=== PATIENT | female | born 1990 | race Caucasian/White ===

== ENCOUNTER → 2017-05-02 | Day surgery (SDC) | payer BC ==
[~2017-05-02] VITALS: Ht 162.6 cm; Wt 50.5 kg
[~2017-05-02] MED LIST: AMOX500T PO; AMPICILLIN/SULBAC 3 GM/NS 100 ML IV ONE; CHLORHEXIDINE GLUCONATE 2 % 1 PACK (2 CLOTHS) TOPICAL PRN; FAMOTIDINE 20 MG/2 ML VIAL ONE; HYDR1SOL3 PO; LACTATED RINGER'S 1000 ML IV PRN; METOPROLOL TARTRATE 25 MG TAB PO PRN; MICROFIBRILLAR COLLAGEN HEMOSTAT 1 GM PKT ONE; MIDAZOLAM HCL 2 MG/2 ML VIAL ONE; OXYMETAZOLINE HCL 0.05% 15 ML NASAL SPRAY ONE; POVIDONE IODINE 5% (ANTISEPSIS KIT) 4 APPLICATIONS EACH NARE PRN; PRED50TA PO; PROM25SU8 PO; SODIUM CHLORID 0.9% 500 ML IV PRN; ZOFR4TAB3 SL
[2017-05-02 09:25] VITALS: PULSE 70
[2017-05-02 10:00] VITALS: PULSE 71; TEMP 97.8
[2017-05-02 10:25] VITALS: BP 115/69; PULSE 57; RESP 14; O2SAT 100
--- NOTE | 2017-05-02 22:21 | MP ---
cc: LEANNE WAHL MD DATE OF SURGERY 05/02/[address] Delmis wahl PREOPERATIVE DIAGNOSIS 1. Adenotonsillar hypertrophy 2. Chronic tonsillitis. POSTOPERATIVE DIAGNOSIS 1. Adenotonsillar hypertrophy 2. Chronic tonsillitis. OPERATION PERFORMED Adenotonsillectomy INDICATIONS Documented in the history and physical. DESCRIPTION OF OPERATION The patient was taken to OR #2 and placed in the supine position. Following induction of general anesthesia and intubation, a shoulder roll, a Jeff head drape and a McIvor mouth gag were put in place. The tonsils were removed using the ArthroCare Coblator technique. A few sites of venous bleeding were cauterized using the bipolar cautery until hemostasis was complete. Following this, the adenoids were removed using the suction Bovie at 45 gonzales. The stomach was aspirated of several cc of cloudy gastric contents using a #18 [place] sump NG tube and, when this was completed, the mouth gag was removed and the procedure was terminated. The patient was reversed from anesthesia and taken to recovery in good condition. There were no complications. Blood loss was less than 10 mL. MD KAROL Gonzalez/ /10:31 AM /10:12 PM
== END | disposition home or self-care (01) ==
LOC: PHSDC 06:43
PROVIDERS: ATTEND Otolaryngology
DX: J35.01 Chronic tonsillitis (principal)
CPT/HCPCS: 00170; 42821; 88304; J0295; J2250; J3010; J7120

== ENCOUNTER 2017-05-27 13:48 | Inpatient (IN) | payer BC ==
[~2017-05-27] VITALS: Ht 160 cm; Wt 67.4 kg
[~2017-05-27 13:48] MED LIST changes: -AMOX500T PO; -AMPICILLIN/SULBAC 3 GM/NS 100 ML IV ONE; -CHLORHEXIDINE GLUCONATE 2 % 1 PACK (2 CLOTHS) TOPICAL PRN; -FAMOTIDINE 20 MG/2 ML VIAL ONE; -LACTATED RINGER'S 1000 ML IV PRN; -METOPROLOL TARTRATE 25 MG TAB PO PRN; -MICROFIBRILLAR COLLAGEN HEMOSTAT 1 GM PKT ONE; -MIDAZOLAM HCL 2 MG/2 ML VIAL ONE; -OXYMETAZOLINE HCL 0.05% 15 ML NASAL SPRAY ONE; -POVIDONE IODINE 5% (ANTISEPSIS KIT) 4 APPLICATIONS EACH NARE PRN; -PRED50TA PO; -PROM25SU8 PO; -SODIUM CHLORID 0.9% 500 ML IV PRN
[2017-05-27 13:49] VITALS: BP 112/84; PULSE 73; RESP 18; TEMP 98.8; O2SAT 100
--- NOTE | 2017-05-27 15:06 | PD ---
HPI Chief Complaint: Injury Time Seen by Provider: 15:01 Travel History International Travel<30 days: No Contact w/Intl Traveler<30days: No Traveled to known affect area: No History of Present Illness HPI 26-year-old female presents the emergency department after falling off her skateboard injuring her right ankle. Patient is unable to bear weight. She is brought in by her friends via POV. She denies hitting her head or loss of consciousness. She denies any other injury. Her pain is currently 10 out of 10. She denies numbness or tingling distal to the right ankle. Patient states when she has morphine gives her rash and causes itchiness. She has allergies to codeine and promethazine as well. Patient did take 2 Aleve before arriving here. PFSH Past Medical History Diminished Hearing: No Immunizations Current: Yes ?: Not LMP: 05/17/17 Past Surgical History AICD: No Joint Replacement: No Oral Surgery: Yes (WISDOM TEETH REMOVAL) Pacemaker: No Social History Alcohol Use: Yes Tobacco Use: No Substance Use: No Allergies-Medications (Allergen,Severity, Reaction): Coded Allergies: morphine (Verified Allergy, Severe, Hives, 05/27/17) promethazine (Verified Adverse Reaction, Severe, NECK SPASMS, 05/27/17) codeine (Unverified Adverse Reaction, Mild, VOMITING, 05/27/17) Reported Meds & Prescriptions Reported Meds & Active Scripts Active No Active Prescriptions or Reported Medications Review of Systems Except as stated in HPI: all other systems reviewed are Neg General / Constitutional: No: Fever Eyes: No: Visual changes HENT: No: Headaches Cardiovascular: No: Chest Pain or Discomfort Respiratory: No: Shortness of Breath Gastrointestinal: No: Abdominal Pain Genitourinary: No: Dysuria Musculoskeletal: No: Pain Skin: No Rash Neurologic: No: Weakness Psychiatric: No: Depression Endocrine: No: Polydipsia Hematologic/Lymphatic: No: Easy Bruising Physical Exam Narrative GENERAL: Patient appears in mild to moderate distress SKIN: Warm and dry. Normal color. Normal turgor. Patient is a small abrasion to the right medial anterior ankle. HEAD: Atraumatic. Normocephalic. EYES: Pupils equal and round. No scleral icterus. No injection or drainage. ENT: No nasal bleeding or discharge. Mucous membranes pink and moist. Pharynx is clear. Airway is patent NECK: Trachea midline. Supple nontender CARDIOVASCULAR: Regular rate and rhythm. RESPIRATORY: No accessory muscle use. Clear to auscultation. Breath sounds equal bilaterally. GASTROINTESTINAL: Abdomen soft, non-tender, nondistended. Hepatic and splenic margins not palpable. MUSCULOSKELETAL: Extremities without clubbing, cyanosis, or edema. Patient is obvious swelling to the right ankle, and significant decreased range of motion secondary to pain. Neurovascular exam of the toes and foot are normal. Exam is limited secondary to patient's comfort NEUROLOGICAL: Awake and alert. No obvious cranial nerve deficits. Motor grossly within normal limits. Five out of 5 muscle strength in the arms and legs. Normal speech. PSYCHIATRIC: Appropriate mood and affect; insight and judgment normal. Data Data Last Documented VS Vital Signs Date Time Temp Pulse Resp B/P (MAP) Pulse Ox O2 Delivery O2 Flow Rate FiO2 05/27/17 13:49 98.8 73 18 112/84 (93) 100 Orders Orders Ankle, Complete ([id number]) (05/27/17 ) Splinting (05/27/17 ) Admit Order (Ed Use Only) (05/27/17 15:44) Complete Blood Count With Diff (05/27/17 15:44) Comprehensive Metabolic Panel (05/27/17 15:44) Prothrombin Time / Inr (Pt) (05/27/17 15:44) Act Partial Throm Time (Ptt) (05/27/17 15:44) Urinalysis - C+S If Indicated (05/27/17 15:44) Iv Access Insert/Monitor (05/27/17 15:44) Ecg Monitoring (05/27/17 15:44) Oximetry (05/27/17 15:44) Ondansetron Inj (Zofran Inj) (05/27/17 15:45) Sodium Chlor 0.9% 1000 Ml Inj (Ns 1000 M (05/27/17 15:44) Sodium Chloride 0.9% Flush (Ns Flush) (05/27/17 15:45) Hydromorphone Pf Inj (Dilaudid Pf Inj) (05/27/17 15:45) Ed Urine Pregnancytest Poc (05/27/17 15:44) Consult Orthopedic (05/27/17 ) [facility] Medical Decision Making Medical Screen Exam Complete: Yes Emergency Medical Condition: Yes Medical Record Reviewed: Yes Differential Diagnosis Fall and sports. Right ankle sprain. Right ankle fracture. Narrative Course Patient is medically stable at time of exam X-ray of the right ankle is ordered in triage X-ray shows trimalleolar fracture of the right ankle. Patient is discussed with Dr. Purdy, orthopedic on-call and he recommends admitting the patient for surgery tomorrow as it looks like an unstable fracture. Labs ordered including CBC, CMP, urinalysis, and urine test. IV access is obtained and patient is given 4 mg Zofran as well as 1 mg Dilaudid IV. Call was placed to the hospitalist, and the patient was discussed with Dr. Chapman , who agrees to admit the patient. Diagnosis Primary Impression: Closed right ankle fracture Qualified Codes: S82.891A - Other fracture of right lower leg, initial encounter for closed fracture Admitting Information Admitting Physician Requests: Observation Additional Instructions: X-ray shows trimalleolar fracture of the right ankle. Patient is discussed with Dr. Purdy, orthopedic on-call and he recommends admitting the patient for surgery tomorrow as it looks like an unstable fracture. Labs ordered including CBC, CMP, urinalysis, and urine test. IV access is obtained and patient is given 4 mg Zofran as well as 1 mg Dilaudid IV. Call was placed to the hospitalist, and the patient was discussed with Dr. Chapman , who agrees to admit the patient. Scripts No Active Prescriptions or Reported Meds Condition: Stable Liam Cheng May 27, 2017 15:06
--- NOTE | 2017-05-27 15:09 | RADRPT ---
EXAM DATE/TIME: 05/27/2017 14:26 [facility] COMPARISON: No previous studies available for comparison. INDICATIONS : Ankle injury. MEDICAL HISTORY : None. SURGICAL HISTORY : None. ENCOUNTER: Initial ACUITY: 1 day PAIN SCORE: 7/10 LOCATION: Right Ankle. FINDINGS: There are nondisplaced fractures of the lateral and medial malleoli as well as the posterior malleolu s. Soft tissue prominence overlying the ankle. Talar dome is intact. Joint spaces are relatively main tained. CONCLUSION: 1. Nondisplaced trimalleolar fracture. Tom Rivas MD on May 27, 2017 at 15:06 Board Certified Radiologist. This report was verified electronically.
[2017-05-27] MEDS ORDERED: SODIUM CHLOR 0.9% 1000 ML INJ 1,000 ML IV SCH (15:44)
[2017-05-27] MEDS ORDERED: SODIUM CHLORIDE 0.9% FLUSH 10 ML FLUSH IV FLUSH PRN ×2 (15:45→16:30)
[2017-05-27] MEDS: HYDROmorphone HCL PF 1 MG/ML VIAL IVS ONE ×2 (15:45→16:17)
[2017-05-27] MEDS ORDERED: ONDANSETRON HCL 4 MG/2 ML VIAL IVP ONE (15:45)
[2017-05-27] MEDS ORDERED: HYDROmorphone HCL PF 2 MG/ML VIAL IV ONE (16:15)
[2017-05-27 16:18] LABS: AUTOMATED NEUTROPHIL # 10.5 TH/MM3 (1.8-7.7); BASOPHIL % 0.2 % (0.0-2.0); EOSINOPHIL % 0.2 % (0.0-4.0); HEMATOCRIT 38.4 % (35.0-46.0); HEMOGLOBIN 12.2 GM/DL (11.6-15.3); LYMPH % 9.3 % (9.0-44.0); LYMPHOCYTE # 1.1 TH/MM3 (1.0-4.8); MEAN CORPUSCULAR HGB CONC 31.7 % (32.0-36.0); MEAN PLATELET VOLUME 9.6 FL (7.0-11.0); MONO % 5.7 % (0.0-8.0); MONOCYTE # 0.7 TH/MM3 (0-0.9); NEUT % 84.6 % (16.0-70.0); PLATELET COUNT 205 TH/MM3 (150-450); WHITE BLOOD COUNT 12.4 TH/MM3 (4.0-11.0)
[2017-05-27 16:25] VITALS: BP 106/70; PULSE 70; RESP 16; O2SAT 100
[2017-05-27] MEDS ORDERED: NALOXONE HCL 0.4 MG/ML AMP IV PUSH PRN (16:30)
[2017-05-27] MEDS ORDERED: ACETAMINOPHEN/HYDROcodone 325 MG/10 MG TAB PO PRN (16:30)
[2017-05-27] MEDS ORDERED: ACETAMINOPHEN/HYDROcodone 325 MG/5 MG TAB PO PRN (16:30)
[2017-05-27] MEDS ORDERED: ONDANSETRON HCL 4 MG/2 ML VIAL IVP PRN (16:30)
[2017-05-27] MEDS ORDERED: HYDROmorphone HCL PF 2 MG/ML VIAL IV PUSH PRN (16:30)
[2017-05-27] MEDS ORDERED: ACETAMINOPHEN 325 MG TAB PO PRN ×2 (16:30)
[2017-05-27 16:34] LABS: ALBUMIN 4.7 GM/DL (3.4-5.0); AST (GOT) 12 U/L (15-37); BICARBONATE 26.4 MEQ/L (21.0-32.0); BLOOD UREA NITROGEN 9 MG/DL (7-18); CALCIUM 9.5 MG/DL (8.5-10.1); CHLORIDE 106 MEQ/L (98-107); CREATININE 0.77 MG/DL (0.50-1.00); GLOMERULAR FILTRATION RATE 92 ML/MIN (>89); GLUCOSE,RANDOM 89 MG/DL (74-106); SODIUM (NA) 139 MEQ/L (136-145)
[2017-05-27 16:35] LABS: INTERNATIONAL NORMALIZED RATIO 1.1 RATIO; PROTHROMBIN TIME - PATIENT 11.4 SEC (9.8-11.6)
[2017-05-27 16:36] LABS: ALT (GPT) 13 U/L (10-53)
[2017-05-27 16:37] LABS: ALKALINE PHOSPHATASE 59 U/L (45-117); TOTAL BILIRUBIN ADULT 0.5 MG/DL (0.2-1.0); TOTAL PROTEIN 7.6 GM/DL (6.4-8.2)
--- NOTE | 2017-05-27 16:55 | HHI.HP ---
HPI Service [facility] Primary Care Physician No Primary Care Physician Admission Diagnosis Right ankle fracture Diagnoses: Chief Complaint: Ankle pain Travel History International Travel<30 Days: No Contact w/Intl Traveler <30 Da: No Traveled to Known Affected Are: No History of Present Illness The patient is a 26-year-old female with no significant past medical history who is presenting to the hospital following a skateboarding accident. [place] and when she was going down a ramp she fell off her skateboard and rolled her ankle multiple times. She went to the ground and try to wiggle her toes and had a lot of difficulty moving her foot. She thought she fractured her ankle. She called for help and waited an hour before her friend was able to pick her up. Her friend gave her two Aleve's. The patient says that the Dilaudid she received is making her a little woozy. She wanted to know when she would be going for surgery tomorrow. She said she got her tonsils out last month. She had no other acute concerns. Review of Systems Except as stated in HPI: all other systems reviewed are Neg Past Family Social History Past Medical History The patient denies significant medical history Past Surgical History Tonsillectomy Allergies: Coded Allergies: morphine (Verified Allergy, Severe, Hives, 05/27/17) promethazine (Verified Adverse Reaction, Severe, NECK SPASMS, 05/27/17) codeine (Unverified Adverse Reaction, Mild, VOMITING, 05/27/17) Active Ordered Medications Current Medications Medications (Trade) Dose Ordered Sig/Catherine Route Start Time Stop Time Status Last Admin (NS Flush) 2 ml UNSCH PRN IV FLUSH 05/27/17 15:45 Sodium Chloride 1,000 ml @ 75 mls/hr [id number] IV 05/27/17 16:20 05/28/17 18:59 (NS Flush) 2 ml UNSCH PRN IV FLUSH 05/27/17 16:30 (NS Flush) 2 ml BID IV FLUSH 05/27/17 21:00 (Tylenol) 650 mg Q4H PRN PO 05/27/17 16:30 (Zofran Inj) 4 mg Q6H PRN IVP 05/27/17 16:30 (Tylenol) 650 mg Q6H PRN PO 05/27/17 16:30 (Saranac 5-325 Mg) 1 tab Q4H PRN PO 05/27/17 16:30 ([place] 10-325 Mg) 1 tab Q4H PRN PO 05/27/17 16:30 (Dilaudid Pf Inj) 1 mg Q3H PRN IV PUSH 05/27/17 16:30 (Narcan Inj) 0.4 mg UNSCH PRN IV PUSH 05/27/17 16:30 (Angelica-Colace) 1 tab BID PO 05/27/17 21:00 Family History Ovarian and breast cancer Social History The patient does not smoke, drink or use illicit substances. Physical Exam Vital Signs Vital Signs Date Time Temp Pulse Resp B/P (MAP) Pulse Ox O2 Delivery O2 Flow Rate FiO2 05/27/17 16:40 05/27/17 16:25 70 16 106/70 (82) 100 05/27/17 16:25 100 Room Air 05/27/17 13:49 98.8 73 18 112/84 (93) 100 Physical Exam GENERAL: This is a well-nourished, well-developed patient, in no apparent distress. SKIN: No rashes, ecchymoses or lesions. Cool and dry. HEAD: Atraumatic. Normocephalic. No temporal or scalp tenderness. EYES: Pupils equal round and reactive. Extraocular motions intact. No scleral icterus. No injection or drainage. ENT: Nose without bleeding, purulent drainage or septal hematoma. Throat without erythema, tonsillar hypertrophy or exudate. Uvula midline. Airway patent. NECK: Trachea midline. No JVD or lymphadenopathy. Supple, nontender, no meningeal signs. CARDIOVASCULAR: Regular rate and rhythm without murmurs, gallops, or rubs. RESPIRATORY: Clear to auscultation. Breath sounds equal bilaterally. No wheezes , rales, or rhonchi. GASTROINTESTINAL: Abdomen soft, non-tender, nondistended. No hepato-splenomegaly , or palpable masses. No guarding. MUSCULOSKELETAL: Right lower extremity is wrapped up. She is able to wiggle her toes. Positive pedal pulses on the left. NEUROLOGICAL: Awake and alert. Cranial nerves II through XII intact. Motor and sensory grossly within normal limits. Five out of 5 muscle strength in all muscle groups. Normal speech. PSYCH: Mood and affect appropriate. Laboratory Laboratory Tests Test 05/27/17 15:40 White Blood Count 12.4 Red Blood Count 6.40 Hemoglobin 12.2 Hematocrit 38.4 Mean Corpuscular Volume 60.0 Mean Corpuscular Hemoglobin 19.0 Mean Corpuscular Hemoglobin Concent 31.7 Red Cell Distribution Width 15.0 Platelet Count 205 Mean Platelet Volume 9.6 Neutrophils (%) (Auto) 84.6 Lymphocytes (%) (Auto) 9.3 Monocytes (%) (Auto) 5.7 Eosinophils (%) (Auto) 0.2 Basophils (%) (Auto) 0.2 Neutrophils # (Auto) 10.5 Lymphocytes # (Auto) 1.1 Monocytes # (Auto) 0.7 Eosinophils # (Auto) 0.0 Basophils # (Auto) 0.0 CBC Comment AUTO DIFF Prothrombin Time 11.4 Prothromb Time International Ratio 1.1 Activated Partial Thromboplast Time 24.6 Blood Urea Nitrogen 9 Creatinine 0.77 Random Glucose 89 Total Protein 7.6 Albumin 4.7 Calcium Level 9.5 Alkaline Phosphatase 59 Aspartate Amino Transf (AST/SGOT) 12 Alanine Aminotransferase (ALT/SGPT) 13 Total Bilirubin 0.5 Sodium Level 139 Potassium Level 3.7 Chloride Level 106 Carbon Dioxide Level 26.4 Anion Gap 7 Estimat Glomerular Filtration Rate 92 Result Diagram: 05/27/17 1540 05/27/17 1540 Caprini VTE Risk Assessment Caprini VTE Risk Assessment: Mod/High Risk (score >= 2) Caprini Risk Assessment Model Point Value = 1 Point Value = 2 Point Value = 3 Point Value = 5 Age 41-60 Minor surgery BMI > 25 kg/m2 Swollen legs Varicose veins or History of unexplained or recurrent spontaneous Oral contraceptives or hormone replacement Sepsis (< 1 month) Serious lung disease, including pneumonia (< 1 month) Abnormal pulmonary function Acute myocardial infarction Congestive heart failure (< 1 month) History of inflammatory bowel disease Medical patient at bed rest Age 61-74 Arthroscopic surgery Major open surgery (> 45 min) Laparoscopic surgery (> 45 min) Malignancy Confined to bed (> 72 hours) Immobilizing plaster cast Central venous access Age >= 75 History of VTE Family history of VTE Factor V Leiden Prothrombin [id number] Lupus anticoagulant Anticardiolipin antibodies Elevated serum homocysteine Heparin-induced thrombocytopenia Other congenital or acquired thrombophilia Stroke (< 1 month) Elective arthroplasty Hip, pelvis, or leg fracture Acute spinal cord injury (< 1 month) Prophylaxis Regimen Total Risk Factor Score Risk Level Prophylaxis Regimen 0-1 Low Early ambulation 2 Moderate Order ONE of the following: *Sequential Compression Device (SCD) *Heparin 5000 units SQ BID 3-4 Higher Order ONE of the following medications: *Heparin 5000 units SQ TID *Enoxaparin/Lovenox 40 mg SQ daily (WT < 150 kg, CrCl > 30 mL/min) *Enoxaparin/Lovenox 30 mg SQ daily (WT < 150 kg, CrCl > 10-29 mL/min) *Enoxaparin/Lovenox 30 mg SQ BID (WT < 150 kg, CrCl > 30 mL/min) AND/OR *Sequential Compression Device (SCD) 5 or more Highest Order ONE of the following medications: *Heparin 5000 units SQ TID (Preferred with Epidurals) *Enoxaparin/Lovenox 40 mg SQ daily (WT < 150 kg, CrCl > 30 mL/min) *Enoxaparin/Lovenox 30 mg SQ daily (WT < 150 kg, CrCl > 10-29 mL/min) *Enoxaparin/Lovenox 30 mg SQ BID (WT < 150 kg, CrCl > 30 mL/min) AND *Sequential Compression Device (SCD) Assessment and Plan Assessment and Plan Right trimalleolar fracture Sustained following a skateboarding accident. Orthopedic surgery has been consulted. - Anticipate surgery in the morning. - Nothing by mouth at midnight with IV fluids. - Pain control with a bowel regimen. Leukocytosis Likely a stress reaction. - Monitor CBC. PPx: Per orthopedic surgery Code Status Full Discussed Condition With Patient, patient's family, Liam Cheng Physician Certification 2 Midnight Certification Type: Admission for Inpatient Services Order for Inpatient Services The services are ordered in accordance with Medicare regulations or non- Medicare payer requirements, as applicable. In the case of services not specified as inpatient-only, they are appropriately provided as inpatient services in accordance with the 2-midnight benchmark. Estimated LOS (days): 2 days is the estimated time the patient will need to remain in the hospital, assuming treatment plan goals are met and no additional complications. Post-Hospital Plan: Home Valentino Santos DO May 27, 2017 16:55
[2017-05-27 17:06] LABS: BACTERIA, URINE FEW /hpf; BILIRUBIN, URINE NEG (NEG); BLOOD, URINE NEG (NEG); GLUCOSE,URINE NEG (NEG); KETONE, URINE NEG (NEG); MUCUS URINE FEW /lpf (OCC); NITRITE,URINE NEG (NEG); PH, URINE 7.5 (5.0-8.5); SQUAMOUS EPITHELIAL CELL URINE <1 /hpf (0-5); URINE COLOR LIGHT-YELLOW (YELLW/STRAW); URINE LEUKOCYTE ESTERASE NEG (NEG)
[2017-05-27] MEDS: SODIUM CHLOR 0.9% 1000 ML INJ 1,000 ML IV SCH (18:13)
[2017-05-27] MEDS: SODIUM CHLORIDE 0.9% FLUSH 10 ML FLUSH IV FLUSH SCH (19:55)
[2017-05-27] MEDS: DOCUSATE SODIUM 50 MG/SENNA 8.6 MG TAB PO SCH (19:55)
[2017-05-27 20:00] VITALS: BP 99/67; PULSE 51; RESP 15; TEMP 96.6; O2SAT 97
[2017-05-27] MEDS ORDERED: METOCLOPRAMIDE HCL 10 MG/2 ML VIAL IV PUSH ONE (21:30)
[2017-05-27] MEDS ORDERED: KETOROLAC TROMETHAMINE 30 MG/ML (IVP) VIAL IV PUSH ONE (21:30)
[2017-05-28] VITALS: BP 95/66; PULSE 56; RESP 15; TEMP 96.9; O2SAT 98
[2017-05-28] MEDS ORDERED: METOPROLOL TARTRATE 25 MG TAB PO PRN (02:15)
[2017-05-28] MEDS ORDERED: POVIDONE IODINE 5% (ANTISEPSIS KIT) 4 APPLICATIONS EACH NARE PRN (02:15)
[2017-05-28] MEDS ORDERED: LACTATED RINGER'S 1000 ML IV PRN (02:15)
[2017-05-28] MEDS ORDERED: INSULIN HUMAN REGULAR 1,000 UNITS/10 ML VIAL SQ PRN (02:15)
[2017-05-28] MEDS ORDERED: CHLORHEXIDINE GLUCONATE 2 % 1 PACK (2 CLOTHS) TOPICAL PRN (02:15)
[2017-05-28] MEDS ORDERED: SODIUM CHLORID 0.9% 500 ML IV PRN (02:15)
[2017-05-28 04:00] VITALS: BP 91/67; PULSE 65; RESP 15; TEMP 97.6; O2SAT 100
[2017-05-28] MEDS: SODIUM CHLOR 0.9% 1000 ML INJ 1,000 ML IV SCH (05:40)
[2017-05-28 08:00] VITALS: BP 100/62; PULSE 71; RESP 18; TEMP 98.2; O2SAT 100
--- NOTE | 2017-05-28 08:40 | MB ---
cc: LEILANIPRACHIGERMÁN DATE OF CONSULTATION: 05/28/2017 CHIEF COMPLAINT Right ankle pain. HISTORY OF PRESENT ILLNESS 26-year-old female who sustained traumatic injury to the right ankle [place]. She fell going down a ramp and developed immediate onset of pain and swelling. She felt as though she fractured her ankle when she fell. She denies loss of consciousness or hitting her head. The pain is severe, constant with throbbing aching sensation, no numbness or tingling. She presented to [facility] Emergency Room and x-rays confirmed evidence of a right bimalleolar ankle fracture. She was given Dilaudid upon admission because of her significant pain. She has been admitted to medical service, orthopedic surgery has been consulted for further evaluation and management. PAST MEDICAL HISTORY Past medical history is negative. PAST SURGICAL HISTORY Tonsillectomy. ALLERGIES MORPHINE AND CODEINE CAUSE A MILD RASH WELL NAUSEA, WELL PHENERGAN. MEDICATION She takes no medications. FAMILY HISTORY Positive for ovarian and breast cancer. SOCIAL HISTORY She does not smoke, drink or use drugs. REVIEW OF SYSTEMS Negative for 10 systems, other than HPI. PHYSICAL EXAMINATION VITAL SIGNS: Temperature 98.8, pulse 73, respirations 18, blood pressure 112/84. GENERAL Patient is a well-nourished female, awake, alert, lying in bed in no acute. Distress. HEENT: Normocephalic, atraumatic. Pupils are round and reactive. Extraocular muscles intact. NECK: Neck is supple. LUNGS: Clear. HEART: Regular rate and rhythm. ABDOMEN: Soft, nontender. SKIN: Warm, dry, intact. No rashes. NEUROLOGIC: Exam nonfocal. Mood and affect are appropriate. She has tenderness to palpation of the right ankle wound with motion. She can flex her toes distally. Brisk cap refill. Sensation intact distally. LABORATORY DATA White blood cell count 12.4, hemoglobin 12, hematocrit 38, platelets 205, BUN is 9, creatinine 0.77, glucose 89. IMAGING STUDIES X-rays of the right ankle revealed a right trimalleolar ankle fracture. There is some displacement seen on multiple views as well as soft tissue swelling. IMPRESSION A 26-year-old female status post fall while skateboarding with a displaced right trimalleolar ankle fracture. PLAN I discussed the diagnosis with the patient and the patient's mother at the bedside. I spoke about the option of nonoperative treatment versus surgery. Surgery would consist of open reduction, internal fixation of the right ankle fracture. The risks of surgery were discussed which include but not limited to anesthesia, bleeding, infection, damage to nerves and blood vessels, pain, stiffness, failure of hardware, blood clots, embolism. The patient has asked appropriate questions as has the patient's mother. The patient does favor benefits over the risks and does wish to proceed with surgery. Written consent is obtained and surgical site has been marked and will schedule surgery accordingly. Germán Purdy MD [facility]WStar/TLL /7:47 AM /8:19 AM
[2017-05-28 08:41] LABS: HEMATOCRIT 34.9 % (35.0-46.0); HEMOGLOBIN 11.1 GM/DL (11.6-15.3); MEAN CELL VOLUME 60.6 FL (80.0-100.0); MEAN CORPUSCULAR HEMOGLOBIN 19.2 PG (27.0-34.0); MEAN CORPUSCULAR HGB CONC 31.7 % (32.0-36.0); MEAN PLATELET VOLUME 10.1 FL (7.0-11.0); PLATELET COUNT 177 TH/MM3 (150-450); RED BLOOD COUNT 5.75 MIL/MM3 (4.00-5.30); WHITE BLOOD COUNT 7.4 TH/MM3 (4.0-11.0)
[2017-05-28] MEDS: DOCUSATE SODIUM 50 MG/SENNA 8.6 MG TAB PO SCH (09:00)
[2017-05-28] MEDS: SODIUM CHLORIDE 0.9% FLUSH 10 ML FLUSH IV FLUSH SCH (09:00)
[2017-05-28] MEDS ORDERED: ACETAMINOPHEN 1000 MG/100 ML 100 ML IV ONE (09:36)
[2017-05-28] MEDS ORDERED: GENTAMICIN SULFATE 80 MG/2 ML VIAL ONE (09:50)
[2017-05-28] MEDS ORDERED: VANCOMYCIN HCL 1000 MG VIAL ONE (09:50)
[2017-05-28] MEDS ORDERED: ceFAZolin 2 GM PREMIX 50 ML ONE (09:50)
[2017-05-28] MEDS ORDERED: SODIUM CHLOR 0.9% 250 ML INJ 250 ML ONE (09:51)
[2017-05-28] MEDS ORDERED: ONDANSETRON HCL 4 MG/2 ML VIAL IVP PRN (11:00)
[2017-05-28] MEDS ORDERED: Post-op Orders (for Pharmacy) XX ONE (11:00)
[2017-05-28] MEDS ORDERED: ACETAMINOPHEN/HYDROcodone 325 MG/7.5 MG TAB PO PRN ×2 (11:00)
[2017-05-28] MEDS ORDERED: DEXT 5%-NACL 0.45% 1000 ML INJ 1,000 ML IV SCH (11:00)
[2017-05-28] MEDS ORDERED: diphenhydrAMINE HCL 25 MG CAP PO PRN (11:00)
[2017-05-28] MEDS ORDERED: MAGNESIUM HYDROXIDE SUSP 30 ML CUP PO PRN (11:00)
[2017-05-28] MEDS ORDERED: MISCELLANEOUS PHARMACY INFORMATION XX ONE (11:00)
[2017-05-28] MEDS ORDERED: MORPHINE SULFATE 4 MG/ML INJ IV PUSH PRN (11:00)
[2017-05-28] MEDS ORDERED: MISCELLANEOUS NURSING INFORMATION XX PRN (11:00)
[2017-05-28] MEDS ORDERED: HYDR-3288 PO (11:02)
[2017-05-28] MEDS ORDERED: ASPI81CH6 CHEW (11:03)
[2017-05-28] MEDS ORDERED: DO NOT ADM ANY ANTICOAGULANT DRUGS PRN (11:15)
[2017-05-28] MEDS ORDERED: *MEPERIDINE 25 MG INJ VIAL PERIprocedural Use ONLY ONE (11:15)
[2017-05-28 12:00] VITALS: BP 102/71; PULSE 68; RESP 18; TEMP 96.1; O2SAT 100
[2017-05-28] MEDS ORDERED: ONDANSETRON HCL 4 MG/2 ML VIAL IV ONE (12:00)
[2017-05-28] MEDS ORDERED: PROPOFOL 200 MG/20 ML AMP IV ONE (12:00)
[2017-05-28] MEDS ORDERED: STERILE WATER FOR INJECTION 20 ML VIAL IV ONE (12:00)
[2017-05-28] MEDS ORDERED: LIDOCAINE HCL 1% PF 5 ML SYRINGE OTHER ONE (12:00)
[2017-05-28] MEDS ORDERED: DEXAMETHASONE SOD PHOS 4 MG/ML VIAL IV ONE (12:00)
[2017-05-28] MEDS ORDERED: MIDAZOLAM HCL 2 MG/2 ML VIAL ONE (13:30)
--- NOTE | 2017-05-28 14:36 | HHI.DCPOC ---
Discharge Care Plan Diagnosis: (1) Closed trimalleolar fracture Goals to Promote Your Health * To prevent worsening of your condition and complications * To maintain your health at the optimal level Directions to Meet Your Goals Take your medications as prescribed Follow your dietary instruction Follow activity as directed Keep your appointments as scheduled Take your immunizations and boosters as scheduled If your symptoms worsen call your PCP, if no PCP go to Urgent Care Center or Emergency Room Smoking is Dangerous to Your Health. Avoid second hand smoke Call the 24-hour hour crisis hotline for domestic abuse at Valentino Santos DO May 28, 2017 14:36
--- NOTE | 2017-05-28 14:41 | HHI.PR ---
Subjective Remarks The patient was feeling well and wanted to go home. Her mother was at the bedside. Their questions were answered. The patient said that she was vomiting all night because of Dilaudid. She is tolerating the hydrocodone well. Discussed with nursing. Objective Vitals Vital Signs Date Time Temp Pulse Resp B/P (MAP) Pulse Ox O2 Delivery O2 Flow Rate FiO2 05/28/17 12:00 96.1 68 18 102/71 (81) 100 05/28/17 11:33 87 16 95/68 (77) 99 Nasal Cannula 2 05/28/17 11:23 85 16 114/74 (87) 99 Nasal Cannula 2 05/28/17 11:14 98.1 95 16 108/66 (80) 99 Nasal Cannula 2 05/28/17 08:00 98.2 71 18 100/62 (75) 100 05/28/17 04:00 97.6 65 15 91/67 (75) 100 05/28/17 00:00 96.9 56 15 95/66 (76) 98 05/27/17 20:00 96.6 51 15 99/67 (78) 97 05/27/17 16:40 05/27/17 16:25 70 16 106/70 (82) 100 05/27/17 16:25 100 Room Air I/O 05/27/17 05/27/17 05/27/17 05/28/17 05/28/17 05/28/17 07:00 15:00 23:00 07:00 15:00 23:00 Intake Total 700 ml 1000 ml Balance 700 ml 1000 ml Intake Oral 700 ml IV Total 1000 ml # Voids 1 1 Result Diagram: 05/28/17 0810 05/27/17 1540 Imaging Last Impressions Ankle X-Ray 05/27/17 0000 Signed Impressions: Service Date/Time: Saturday, May 27, 2017 14:26 - CONCLUSION: 1. Nondisplaced trimalleolar fracture. Tom Rivas MD Objective Remarks GENERAL: This is a well-nourished, well-developed patient, in no apparent distress. SKIN: No rashes, ecchymoses or lesions. Cool and dry. HEAD: Atraumatic. Normocephalic. No temporal or scalp tenderness. EYES: Pupils equal round and reactive. Extraocular motions intact. No scleral icterus. No injection or drainage. ENT: Nose without bleeding, purulent drainage or septal hematoma. Throat without erythema, tonsillar hypertrophy or exudate. Uvula midline. Airway patent. NECK: Trachea midline. No JVD or lymphadenopathy. Supple, nontender, no meningeal signs. CARDIOVASCULAR: Regular rate and rhythm without murmurs, gallops, or rubs. RESPIRATORY: Clear to auscultation. Breath sounds equal bilaterally. No wheezes , rales, or rhonchi. GASTROINTESTINAL: Abdomen soft, non-tender, nondistended. No hepato-splenomegaly , or palpable masses. No guarding. MUSCULOSKELETAL: Right lower extremity s/p surgical repair. NEUROLOGICAL: Awake and alert. Cranial nerves II through XII intact. Motor and sensory grossly within normal limits. Five out of 5 muscle strength in all muscle groups. Normal speech. PSYCH: Mood and affect appropriate. Procedures Right trimalleolar fracture repair Medications and IVs Current Medications Medications (Trade) Dose Ordered Sig/Catherine Route Start Time Stop Time Status Last Admin Sodium Chloride 1,000 ml @ 75 mls/hr [id number] IV 05/27/17 16:20 05/28/17 18:59 05/28/17 05:40 (NS Flush) 2 ml UNSCH PRN IV FLUSH 05/27/17 16:30 (NS Flush) 2 ml BID IV FLUSH 05/27/17 21:00 05/27/17 19:55 (Tylenol) 650 mg Q4H PRN PO 05/27/17 16:30 (Dilaudid Pf Inj) 1 mg Q3H PRN IV PUSH 05/27/17 16:30 05/27/17 18:01 (Narcan Inj) 0.4 mg UNSCH PRN IV PUSH 05/27/17 16:30 (Angelica-Colace) 1 tab BID PO 05/27/17 21:00 05/27/17 19:55 Lactated Ringer's 1,000 ml @ 30 mls/hr Q24H PRN IV 05/28/17 02:15 05/31/17 02:14 Sodium Chloride 500 ml @ 30 mls/hr [id number] PRN IV 05/28/17 02:15 05/31/17 02:14 (Lopressor) 25 mg PLANNER/SCHEDULER PRN PO 05/28/17 02:15 05/31/17 02:14 (Betadine 5% Antisepsis Kit) 1 applic PLANNER/SCHEDULER PRN EACH NARE 05/28/17 02:15 05/31/17 02:14 (Chlorhexidine 2% Cloth) 3 pack PLANNER/SCHEDULER PRN TOPICAL 05/28/17 02:15 05/31/17 02:14 (NovoLIN R INJ) See Protocol Table ... PLANNER/SCHEDULER PRN SQ 05/28/17 02:15 05/31/17 02:14 Dextrose/Sodium Chloride 1,000 ml @ 100 mls/hr Q10H IV 05/28/17 11:00 (Angelica-Colace) 1 tab BID PO 05/28/17 21:00 (Milk Of Magnesia Liq) 10 ml Q12H PRN PO 05/28/17 11:00 Cefazolin Sodium 1000 mg/Sodium Chloride 100 ml @ 200 mls/hr Q8H IV 05/28/17 14:00 05/28/17 13:42 Miscellaneous Information UNSCH PRN XX 05/28/17 11:00 ([place] 7.5-325 Mg) 1 tab Q4H PRN PO 05/28/17 11:00 ([place] 7.5-325 Mg) 2 tab Q6H PRN PO 05/28/17 11:00 05/28/17 12:33 (Zofran Inj) 4 mg Q4H PRN IVP 05/28/17 11:00 (Theragran M Tab) 1 tab DAILY PO 05/29/17 09:00 (Benadryl) 25 mg Q6H PRN PO 05/28/17 11:00 Miscellaneous Information ALL NURSING DEPARTME... UNSCH PRN .XX 05/28/17 11:15 05/29/17 11:14 A/P Assessment and Plan Right trimalleolar fracture Sustained following a skateboarding accident. Orthopedic surgery consult appreciated. S/p surgical repair on 05/28. - Pain control with a bowel regimen. - weightbearing, wound care and anticoagulation per orthopedic surgery. Baby ASA has been started. - outpt follow-up with surgery. Leukocytosis Likely a stress reaction. - Monitor CBC. Resolved. Anemia MCV is low. Likely related to menstrual cycles. - outpt follow up. PPx: Per orthopedic surgery Valentino Santos DO May 28, 2017 14:41
--- NOTE | 2017-05-28 15:24 | RADRPT ---
EXAM DATE/TIME: 05/28/2017 10:19 [place] COMPARISON: No previous studies available for comparison. INDICATIONS : Surgical repair, plate placement. MEDICAL HISTORY : None. SURGICAL HISTORY : None. ENCOUNTER: Initial ACUITY: 1 day PAIN SCORE: Non-responsive. LOCATION: Right ankle. FINDINGS: Two view examination was performed of the right ankle. Patient's had a open reduction and internal fi xation of the ankle fracture. Hardware is in excellent position. There no complications. No radiopaqu e foreign bodies are seen. Bony mineralization is normal. CONCLUSION: Status post ORIF of ankle fracture. No complications. Roman Bowser MD on May 28, 2017 at 15:22 Board Certified Radiologist. This report was verified electronically.
[2017-05-28] MEDS ORDERED: DOCUSATE SODIUM 50 MG/SENNA 8.6 MG TAB PO SCH (21:00)
[2017-05-29] MEDS ORDERED: MULTIVITAMINS/MINERALS THERAPEUTIC TAB PO SCH (09:00)
--- NOTE | 2017-05-29 10:38 | MP ---
cc: GERMÁN DUKE DATE OF SURGERY: 05/28/2017 PREOPERATIVE DIAGNOSIS Right trimalleolar ankle fracture. POSTOPERATIVE DIAGNOSIS Right trimalleolar ankle fracture. PROCEDURE Open reduction, internal fixation right trimalleolar ankle fracture. SURGEON Dr. Germán Duke. PILE DRIVING SUPERINTENDENT Alberto aPyan, Physician Casing Blower Certified. ANESTHESIA General. ESTIMATED BLOOD LOSS Less than 50 ccs. TOURNIQUET TIME Zero minutes. COMPLICATIONS None. JUSTIFICATION This patient is a 26-year-old female who sustained traumatic injury to the right ankle after she fell while roller skating. She presented to [facility] Emergency Room. X-rays confirmed the above-named findings. The patient as well as the patient's mother were counseled as to the risks, benefits and alternatives to the above-named proposed surgical procedure. They did wish to proceed with surgery. PROCEDURE IN DETAIL A written consent was obtained. The patient was identified by name, taken to the operating room and placed supine on the operating table. General anesthesia was administered as well as 2 grams of IV Ancef and 500 mg of IV vancomycin. The right lower extremity was prepped and draped using isopropyl alcohol, Hibiclens solution and Chloraprep solution. After time-out was performed, a longitudinal incision was made at lateral aspect of right ankle. The periosteum was elevated off the distal fibula and a fracture reduction tenaculum clamp was used to perform open reduction of the distal fibula. A 2.7 mm lag screw was placed perpendicular to the fracture and subsequently a Synthes stainless steel distal fibula locking plate was applied lateral aspect of the distal fibula. A combination of both locking and nonlocking screws were used for fixation. Fluoroscopic imaging confirmed hardware placement, fracture reduction. The surgical wound was thoroughly irrigated with sterile saline solution. The subcutaneous layer was closed with combination of 2-0 Vicryl, 3-0 Vicryl suture. Skin was closed with Dermabond. Attention was turned to the medial aspect of the right ankle where a longitudinal incision was made over the medial malleolus. An open reduction was performed and subsequently a guidewire was drilled transversing the fracture. A Synthes 4.0 x 46 mm stainless steel partially threaded cannulated screw was placed over the guidewire for internal fixation of the medial malleolus fracture. There was excellent purchase and fixation after insertion of the screw and the fracture showed anatomic reduction on x-ray. Fluoroscopic imaging again confirmed hardware placement, fracture reduction. The surgical wound was thoroughly irrigated with sterile saline solution. Subcutaneous layer was closed with 3-0 Vicryl, skin incision was closed with 3-0 Nylon. Sterile dressing were applied. The patient was placed in a well-padded splint. She tolerated the procedure well with no intraoperative complications noted. Alberto Payan, Physician Casing Blower Certified was present during the procedure to include patient positioning, the procedure itself. The medical necessity of physician access services assistant was indicated in this case due to the complexity of the procedure. He assisted with manipulation of the leg and also retraction of muscles, tendon, bone, neurovascular structure. He assisted with both achieving and maintaining fracture reduction along with implantation of the internal fixation device. MD UBALDO Chaparro/HONG /10:55 AM /10:23 AM
== END 2017-05-28 16:05 | disposition home or self-care (01) | DRG 494 ==
LOC: NEPA 13:48 → NEDA 15:47 → OBSVTOIN 16:22 → N06B 17:41
PROVIDERS: ADMIT Hospitalist; ATTEND Hospitalist
PROC: 0QSG04Z Reposition Right Tibia with Internal Fixation Device, Open Approach (ICD-10-PCS; principal; 2017-05-28 09:42)
DX: S82.851A Displaced trimalleolar fracture of right lower leg, initial encounter for closed fracture (principal); D50.0 Iron deficiency anemia secondary to blood loss (chronic); D72.828 Other elevated white blood cell count; R11.10 Vomiting, unspecified; T40.2X5A Adverse effect of other opioids, initial encounter; V00.131A Fall from skateboard, initial encounter; Y93.51 Activity, roller skating (inline) and skateboarding; Y92.830 Public park as the place of occurrence of the external cause; Y92.239 Unspecified place in hospital as the place of occurrence of the external cause; Z88.5 Allergy status to narcotic agent
CPT/HCPCS: 73600; 73610; 76000; 80053; 81001; 84703; 85025; 85027; 85610; 85730; 99285; C1713; E0113; J0131; J0690; J1100; J1170; J1580; J1885; J2175; J2250; J2405; J2765; J3010; J3370; J7030; J7050